=== PATIENT | female | born 1965 | race Caucasian/White ===

== ENCOUNTER 2016-07-27 03:53 | Inpatient (IN) | payer OTHER ==
--- NOTE | ~2016-07-27 | CN ---
Consultation Report [facility] [address] [place]. [address] NAME: JOLENE RAMACHANDRAN : 61 STATUS : ADM Pk PAT#: [id number] AGE: 50 ADM/REG DATE : 07/27/16 MR#: [id number] REPORT SERV DATE: 07/27/16 DICTATED BY: BRET BRAGA DATE: 07/27/16 REPORT STATUS : Draft TRANSCRIBED BY: MODL DATE: 07/27/16 INFECTIOUS DISEASE CONSULTATION DATE OF CONSULTATION: 07/27/2016 REASON FOR CONSULTATION: Febrile illness. HISTORY OF PRESENT ILLNESS: This is a very pleasant 50-year-old female with a past medical history notable for autoimmune hepatitis diagnosed about five years ago along with Sjogren syndrome. She has been followed at [facility] and has been on immunosuppressive therapy for some time, presently on Imuran and budesonide. Her Imuran and budesonide doses have recently decreased. The patient states that she has not felt as well for the past couple months, mainly being bothered by just fatigue. However, on the morning of 07/25/2016, she woke with pain in her legs and feet. She has pain in those locations with her underlying illness, but this was of a different quality. She went to work but felt worse and developed nausea and fevers, which went as high as 103 along with some headache. In addition, she has been having chest pain over her anterior chest with some associated shortness of breath. All these symptoms brought her to the emergency department last night where she did spike a fever, sometime after presentation up to 103. Workup was notable for normal white blood cell count. A low procalcitonin level and a mildly elevated troponin level. She underwent extensive radiologic evaluation as outlined below, which was negative. I discussed the case earlier this morning with Dr. Sanchez. The patient was evaluated by Dr. Arreola and he noted a loud or heart murmur, and echocardiogram was done today which was technically difficult, but showed gyon-fo-tkcevubi mitral regurgitation with an eccentric jet and estimated ejection fraction of 55%. An echocardiogram report from October of 2014 described mild mitral regurgitation and estimated ejection fraction of 65% to 70%. The patient had four sets of blood cultures done this morning. Antibiotics have not been started. The patient denies any recent infection issues such as skin or soft tissue infections like a boil or an abscess. She denies any dental infections or urinary tract infections. The patient does note that she found a tick crawling on her body a 10-14 days ago, but has not found any embedded ticks and really is not outdoors very much. In fact she says for the most part she goes to work, comes home, eats a little bit, and then is exhausted and goes to bed. PAST MEDICAL HISTORY: 1. Autoimmune hepatitis as mentioned in the past. She was also on Prograf for about four years but that was stopped two years ago. 2. Sjogren's syndrome with positive GAGE. 3. History of shingles. ALLERGIES: NO KNOWN DRUG ALLERGIES. OUTPATIENT MEDICATIONS: In addition to the Imuran and budesonide include just p.r.n. Ultram. SOCIAL HISTORY: Nonsmoker, nondrinker. She is and her is here in the room Consultation Report [place] [id number] [facility] [place]. [address] NAME: JOLENE RAMACHANDRAN : 61 STATUS : ADM Pk PAT#: [id number] AGE: 50 ADM/REG DATE : 07/27/16 MR#: [id number] REPORT SERV DATE: 07/27/16 DICTATED BY: BRET BRAGA DATE: 07/27/16 REPORT STATUS : Draft TRANSCRIBED BY: BRANDON DATE: 07/27/16 with her. She works for a [employer]. No recent travel history. No pets or animal contact. No known exposure to active tuberculosis. No particular hobbies. No unusual dietary habits. FAMILY HISTORY: Notable for mother with rheumatoid arthritis. REVIEW OF SYSTEMS: As outlined above. As mentioned, she has had a headache for the past couple of days. It was fairly bothersome yesterday, but not at present. No visual symptoms. No oral ulcers. Denies any cough, no diarrhea, no dysuria. Denies any bleeding or bruising. PHYSICAL EXAMINATION: VITAL SIGNS: The patient weighs 96 kilos. Presently is afebrile, maximum temperature 103.2 early this morning. Blood pressure 136/59, pulse 91, it was as high as 102, respiratory rate is 16. GENERAL: She is alert. She looks mildly ill, but in no acute distress at all. HEAD AND NECK: Extraocular movements intact. Conjunctivae without petechiae. The oral cavity is clear. Neck is supple. No adenopathy. LUNGS: Clear to auscultation. CARDIAC: Regular rate and rhythm. Normal S1, S2 with a 3/6 systolic murmur at the lower left sternal border and apex. No rub. ABDOMEN: Soft, nontender. Bowel sounds present. No masses. EXTREMITIES: No stigmata of endocarditis. No signs of active synovitis. NEUROLOGIC: Exam is grossly intact. LABORATORY STUDIES: White blood cell count 5.0, hemoglobin 13.9, platelets 102, last platelet count I have in [employer] was in September of 2015 at 200; automated differential, 80% neutrophils, 8% lymphocytes, 11% monocytes. Creatinine 0.81, procalcitonin 0.14, ALT 117, AST 98 (her transaminases have been improving over the past couple of months). Urinalysis negative. Sedimentation rate 18. A CTA of the chest, abdomen, and pelvis unremarkable. Repeat troponin 0.38. IMPRESSION: Febrile illness of uncertain etiology in a patient with underlying autoimmune hepatitis and Sjogren syndrome on immunosuppressive therapy. Certainly, with this a loud murmur and possibility of worsening mitral regurgitation, I have to consider the possibility of endocarditis. Other bacterial etiologies of this illness seem unlikely given the negative workup to date and particularly the negative imaging. She did find this tick on her 10-14 days ago, but overall I doubt this is a tick-borne infection. Her exposure history is minimal and she has not found an embedded tick. Certainly, though with the thrombocytopenia, must consider Ehrlichia, her transaminases are elevated but this is chronic. The overall picture is also complicated by the elevation in her troponin and her chest pain. Certainly, this could all be a viral syndrome also. PLAN: For now, we will just simply wait on the blood cultures. I think it is reasonable to hold antibiotics pending these results as she is not toxic and is hemodynamically stable. Consultation Report [address] [place]. [address] NAME: JOLENE RAMACHANDRAN : 61 STATUS : ADM Pk PAT#: [id number] AGE: 50 ADM/REG DATE : 07/27/16 MR#: [id number] REPORT SERV DATE: 07/27/16 DICTATED BY: BRET BRAGA DATE: 07/27/16 REPORT STATUS : Draft TRANSCRIBED BY: BRANDON DATE: 07/27/16 If the blood cultures returned positive, we will repeat two more sets and then begin vancomycin if the Gram stain shows gram-positive cocci. /MODL Bret Braga M.D. / [id number] CC: Devon Ramirez Llyod James
--- NOTE | ~2016-07-27 | HP ---
History And Physical [facility] [address] [place]. [address] NAME: JOLENE RAMACHANDRAN : 61 STATUS : ADM Pk PAT#: [id number] AGE: 50 ADM/REG DATE : 07/27/16 MR#: [id number] REPORT SERV DATE: 07/27/16 DICTATED BY: QUINN MARQUEZ DATE: 07/27/16 REPORT STATUS : Draft TRANSCRIBED BY: MODL DATE: 07/27/16 DATE OF ADMISSION: 07/27/2016 CHIEF COMPLAINT: A 50-year-old female with autoimmune hepatitis and Sjogren's, now presenting with chest pain and fevers. HISTORY OF PRESENTING ILLNESS: The patient's history was obtained through careful interview with the patient and , coupled with review of [facility] medical records. The patient states that around the evening of 07/25/2016 she began to develop new-onset chest discomfort and "just felt bad." She has had subjective fevers and chills and a measured temperature up to 100.3 at home. For about two days, she has suffered nausea, vomiting, and severe reflux symptoms and intermittent chest discomfort. But then on the night of 07/25/2016 and 07/26/2016, she stayed up all night long with chest discomfort. It was worsened by sitting down and lying down and was improved by sitting up straight or leaning forward. She describes it is in the area around her xiphoid, as she describes it. It has a heaviness or "on fire" quality. It has caused some aching discomfort in her left arm as well. It gets up to a 7/10 severity. Her chest discomfort is associated with her nausea as well as shortness of breath and feeling like she cannot take a deep breath with dyspnea on exertion. She has also had lightheadedness. She describes "my heart is going to beat out of my chest" with palpitations. No change of bowel or bladder habit. No abdominal pain. No back pain. No headaches. No arthritis pains. REVIEW OF SYSTEMS: Otherwise, a 14-point review of systems was obtained and was negative. PAST MEDICAL HISTORY: 1. Autoimmune hepatitis, diagnosed about five years ago, followed by [facility], under good control on Imuran and budesonide. 2. Sjogren's with positive GAGE. 3. Pneumonia. 4. Cellulitis. 5. Shingles. 6. Negative Holter monitor in 2016. 7. Negative cardiac stress test in September 2015. PAST SURGICAL HISTORY: Liver biopsy x3. History And Physical [address] [address] NAME: JOLENE RAMACHANDRAN : 61 STATUS : ADM Pk PAT#: [id number] AGE: 50 ADM/REG DATE : 07/27/16 MR#: [id number] REPORT SERV DATE: 07/27/16 DICTATED BY: QUINN MARQUEZ DATE: 07/27/16 REPORT STATUS : Draft TRANSCRIBED BY: BRANDON DATE: 07/27/16 ALLERGIES: NO KNOWN DRUG ALLERGIES. SOCIAL HISTORY: No tobacco abuse. No alcohol abuse. Is . Has no children. Lives in [place], [place]. Works for the [employer]. FAMILY HISTORY: Mother and grandmother with pancreatic cancer. Father healthy. Mother with rheumatoid arthritis. CURRENT MEDICATIONS: Include Imuran 150 mg p.o. daily, budesonide 9 mg every morning, tramadol. PHYSICAL EXAMINATION: VITAL SIGNS: Temperature 103.0, pulse 102, blood pressure 172/67, respiratory rate 22, O2 saturation 97% on room air. GENERAL: A pleasant, cooperative female. She does not appear particularly ill or in any evidence of distress. HEENT: Pupils equal, round, and reactive to light. No conjunctival pallor. No scleral icterus. Nares are patent. Oropharynx is clear of obstruction. Moist mucous membranes. No facial rash. NECK: Trachea midline. No thyromegaly. LYMPH: No cervical lymphadenopathy. No supraclavicular lymphadenopathy. RESPIRATORY: Clear to auscultation at the bases. No wheezes, no rales, no rhonchi. Normal respiratory effort. CARDIOVASCULAR: Tachycardic. Regular rhythm. The patient has no murmurs or gallops. I do think that I appreciate a rub on examination throughout cardiac evaluation and exam. The patient has no current extremity edema. ABDOMEN: Soft, nontender, nondistended. Normal bowel tones auscultated throughout. No hepatosplenomegaly is appreciated. DERMATOLOGICAL: Warm, dry extremities. No pallor. No cyanosis. PSYCHIATRIC: Normal affect. Good mood. Alert and oriented x3. LABORATORY DATA: Troponin 0.32. Procalcitonin 0.14. Lipase 441. INR 1.1. AST 98, ALT 117, alkaline phosphatase 101. White blood cell count 5.0, hemoglobin 14, hematocrit 40, platelets 102. Sodium 135, potassium 3.5, chloride 103, bicarb 23, BUN 7, creatinine 0.81, glucose 165. Urinalysis negative for infection. STUDIES: 1. EKG, by my own evaluation, shows sinus tachycardia. There are no ST changes of significance. 2. CT angiogram of the chest shows no pulmonary embolism, no intrathoracic process. 3. CT of the abdomen and pelvis shows no acute intraabdominal process. ASSESSMENT AND PLAN: 1. Chest pain. Negative EKG. Primary differential diagnosis is pericarditis versus coronary artery disease versus a noncardiac disease. Negative CT angiogram of the chest is noted. History And Physical [address] [address] NAME: JOLENE RAMACHANDRAN : 61 STATUS : ADM Pk PAT#: [id number] AGE: 50 ADM/REG DATE : 07/27/16 MR#: [id number] REPORT SERV DATE: 07/27/16 DICTATED BY: QUINN MARQUEZ DATE: 07/27/16 REPORT STATUS : Draft TRANSCRIBED BY: BRANDON DATE: 07/27/16 2. Presumptive pericarditis. I believe there is a pericardial rub on examination and the patient's presentation seems to be consistent with this, and also with a history of autoimmune condition such as Sjogren's, I would like to check an GAGE titer, ESR, complement level. For now, we will try aspirin 325 mg p.o. daily (considering an increased dose as well) but also try colchicine 0.6 mg p.o. b.i.d. empirically. Check an echocardiogram. There seems to be no evidence of pericardial effusion on CT scan though. 3. Elevated troponin. Possible [id number]-kxqovktvk myocardial infarction versus an elevated troponin from pericarditis? We will start empiric IV heparin drip until cleared by Cardiology or an empiric negative coronary artery disease evaluation has been completed. 4. Fever of 103.0. Check blood cultures x2. Noted the patient has a negative CT scan of the abdomen and pelvis, negative CT scan of the chest, and negative urinalysis. The patient is immunosuppressed on Imuran and Entocort and has a normal white blood cell count. I will hold antibiotics for now, check an echocardiogram, screen for rheumatological activity and disease with complement level, ESR, and GAEG titer, but we will also ask for an Infectious Disease consult. I have discussed the case with Dr. Zoran Braga. 5. Autoimmune hepatitis. Seems under good control. 6. Sjogren's. KPL/MODL Quinn Marquez M.D. / [id number] CC: Devon James LLOYD JAMES
--- NOTE | ~2016-07-27 | CN ---
Consultation Report [facility] [address] [place]. [address] NAME: JOLENE SYKES : 61 STATUS : ADM Pk PAT#: [id number] AGE: 50 ADM/REG DATE : 07/27/16 MR#: [id number] REPORT SERV DATE: 07/27/16 DICTATED BY: CHOCO COLLINS DATE: 07/27/16 REPORT STATUS : Draft TRANSCRIBED BY: MODL DATE: 07/27/16 CARDIOVASCULAR CONSULTATION DATE OF CONSULTATION: 07/27/2016 INDICATION: Chest pain, elevated troponin, heart murmur. HISTORY OF PRESENT ILLNESS: Ms Sykes is a 50-year-old woman with a history of autoimmune hepatitis and Sjogren syndrome. She has known about a heart murmur for several years and evidently had an echocardiogram at [facility]. The details of this are unclear. She has had some off and on chest pain, and by her report, underwent a stress test about a year ago. She has never seen a kaiawhina. Over the last several weeks, she has had worsening symptoms of exertional chest pain and shortness of breath. She has been tapering down on her immunosuppressive medications, following her liver enzymes with her caramel candy maker helper at [facility]. She had worsening chest pain, left arm pain, precordial chest pain, and dyspnea last night. She presented to the emergency room. She was found to have a fever of 103, troponin mildly elevated at 0.32, EKG showed no evidence of ischemia or pericarditis. Chest CTA showed no evidence of pulmonary embolus. She did have a murmur on exam, which was initially thought to be a pericardial friction rub, but I think is more consistent with a mitral regurgitation murmur. PAST MEDICAL HISTORY: 1. Sjogren syndrome. 2. Autoimmune hepatitis. ALLERGIES: NO KNOWN DRUG ALLERGIES. MEDICATIONS: Include Imuran, Entocort, and Ultram. SOCIAL HISTORY: She does not smoke or drink alcohol. FAMILY HISTORY: There is no family history of early coronary artery disease. REVIEW OF SYSTEMS: A complete review of systems was obtained, which is negative in detail except as mentioned above in the HPI. PHYSICAL EXAMINATION: VITAL SIGNS: BLOOD PRESSURE: Initially 170/60, subsequently lower. PULSE: Heart rate of 90s. RESPIRATIONS: 14. TEMPERATURE: 103. GENERAL: Comfortable in no acute distress. Consultation Report [facility] [address] [place]. [address] NAME: JOLENE SYKES : 61 STATUS : ADM Pk PAT#: [id number] AGE: 50 ADM/REG DATE : 07/27/16 MR#: [id number] REPORT SERV DATE: 07/27/16 DICTATED BY: CHOCO COLLINS DATE: 07/27/16 REPORT STATUS : Draft TRANSCRIBED BY: BRANDON DATE: 07/27/16 HEENT: Anicteric. No xanthelasma. Lips without cyanosis. NECK: No JVD. Carotids 2+ and symmetric. No carotid bruits. LUNGS: CTA bilaterally. No wheezes or rhonchi. No accessory muscle use. COR: Regular rate and rhythm. Normal S1, S2. There is a grade 3/6 holosystolic murmur, best heard at the left lower sternal border, radiating to the left chest. ABD: Soft, nontender, nondistended. Normal bowel sounds. No abdominal bruits. EXT: No clubbing, cyanosis, or edema 2+ and symmetric distal pulses. SKIN: Warm. Dry. No venous stasis changes. MS: No kyphosis. NEURO/PSYCH: Oriented x3. No anxiety or depression. LABORATORY STUDIES: White count of 5.0, hematocrit of 39.8, platelets of 102. Potassium of 3.5, creatinine of 0.81. Troponin of 0.32, INR of 1.0. AST of 98, ALT of 117, lipase of 441, alkaline phosphatase of 101. IMPRESSION: This is a 50-year-old woman with a history of autoimmune disease, presenting with dyspnea, chest pain, and a borderline troponin. Her exam is most notable for a loud mitral regurgitation murmur. I have recommended to check an echocardiogram. We will plan to check serial troponin enzymes, although I doubt this is a non-ST elevation VT. She may have some autoimmune involvement with her mitral valve. I am not sure about the possibility of endocarditis. This is a fairly confusing initial clinical presentation and a number of investigations will need to be undertaken. KAMAR/BRANDON Choco Collins M.D. / [id number] CC: Devon James LLOYD JAMES
--- NOTE | ~2016-07-27 | CN ---
Consultation Report [facility] [address] [place]. [address] NAME: JOLENE RAMACHANDRAN : 61 STATUS : ADM Pk PAT#: [id number] AGE: 50 ADM/REG DATE : 07/27/16 MR#: [id number] REPORT SERV DATE: 07/27/16 DICTATED BY: BRET BRAGA DATE: 07/27/16 REPORT STATUS : Draft TRANSCRIBED BY: MODL DATE: 07/27/16 DATE OF CONSULTATION: 07/27/2016 REASON FOR CONSULTATION: Febrile illness. HISTORY OF PRESENT ILLNESS: This is a 50-year-old female with a past medical history notable for autoimmune hepatitis, which was diagnosed about five years ago along with Sjogren's syndrome. She has been followed at [facility] and is on immunosuppressive therapy with Imuran and budesonide. Her doses of the budesonide had been decreased recently. DICTATION ENDS HERE JOVANNA/BRANDON Bret Braga M.D. / [id number] CC: Devon Ramirez
--- NOTE | ~2016-07-27 | TEE ---
Transesophageal Echocardiogram [facility] [address] [place]. [address] NAME: JOLENE RAMACHANDRAN : 61 STATUS : DIS IN PAT#: [id number] AGE: 50 ADM/REG DATE : 07/27/16 MR#: [id number] REPORT SERV DATE: 07/31/16 DICTATED BY: CHOCO COLLINS DATE: 07/28/16 REPORT STATUS : Draft TRANSCRIBED BY: BRANDON DATE: 07/28/16 INDICATION: Endocarditis? PROCEDURE DESCRIPTION: After informed consent, the patient was sedated with propofol by the Anesthesia Department. The transesophageal probe was placed on the first attempt. After removal of the transesophageal probe, there were no immediate complications. TRANSESOPHAGEAL ECHOCARDIOGRAM: 2D: 1. The aortic valve is tricuspid and opens adequately. 2. There is no evidence of left atrial appendage thrombus. 3. There is no evidence of ascending thoracic aortic aneurysm. 4. Left ventricular size and systolic function appears normal. 5. The mitral valve leaflets are mildly thickened. There is no significant mitral valve prolapse. 6. The left atrium is normal in size. 7. Right-sided chambers are normal in size. 8. The tricuspid valve is structurally normal. 9. There is no evidence of pericardial effusion. DOPPLER: Pulse wave Doppler in the left atrial appendage is greater than 40 cm/second. COLOR FLOW: 1. There is mild aortic regurgitation. 2. There is rxsy-tw-defbrhuy mitral regurgitation. 3. There is mild tricuspid regurgitation. IMPRESSION: 1. No evidence of endocarditis. 2. There is ozhl-sd-khoeidtn mitral regurgitation noted. 3. No significant mitral valve prolapse. KAMAR/BRANDON Choco Collins M.D. / [id number] CC: Devon Ramirez Lloyd James
--- NOTE | ~2016-07-27 | DS ---
Discharge Summary [facility] [address] [place]. [address] NAME: JOLENE RAMACHANDRAN : 61 STATUS : DIS Pk PAT#: [id number] AGE: 50 ADM/REG DATE : 07/27/16 MR#: [id number] REPORT SERV DATE: 07/30/16 DICTATED BY: CHAGO POPE DATE: 07/29/16 REPORT STATUS : Draft TRANSCRIBED BY: BRANDON DATE: 07/29/16 ADMISSION DATE: 07/27/2016 DISCHARGE DATE: 07/29/2016 PROCEDURES DONE: 1. 07/27/2016, CT abdomen and pelvis: Unremarkable CT scan of abdomen and pelvis. 2. 07/27/2016, CTA of chest: Normal CTA chest with no PE. 3. 07/27/2016, CTA abdomen and pelvis: No acute abnormality identified. 4. 07/28/2016, 2D echo: Technically difficult study due to limited acoustic windows. Normal LV size and systolic function. EF 55%. No regional wall motion abnormalities identified. Normal RV size and systolic function. Basal septal hypertrophy with mild LVOT obstruction at rest. Aortic valve sclerosis without stenosis. Bcln-yh-gpairgmx mitral valve regurg with eccentric jet. No previous echo available for comparison. 5. 07/28/2016, CHATA: Negative endocarditis. Wrmw-ki-javhkpzj mitral regurg. Normal LV ejection fraction. CONSULTS: Dr. Arreola for Cardio and Dr. Braga for Infectious Disease. REASON FOR ADMISSION: Chest pain with fevers. CHIEF COMPLAINT: Fevers and chest pain. HISTORY OF HOSPITAL STAY: A 50-year-old white female with past medical history of autoimmune hepatitis, Sjogren syndrome, presenting with chest pain and fevers. Cardiology was consulted regarding the patient's chest pain. It was noted there was a slight elevation in troponin levels. Cardiology was consulted for elevated troponins, questionable non-ST elevation HI. More importantly, the patient has mitral regurgitation on examination. CHATA was ordered to rule out endocarditis. CHATA was done on 07/28/2016, which was negative for endocarditis. More importantly, the patient's elevated troponins did not show any non-ST elevation HI. Cardiology felt that the patient's febrile illness could be questionable viral in etiology. Nonetheless, Infectious Disease was consulted due to the patient's fevers. Again, difficult to ascertain if the patient's elevated fever is due to autoimmune hepatitis and Sjogren syndrome on immunosuppression. Infectious Disease felt to hold off antibiotics until cultures were done, which were negative. Since the patient has been feeling better after being admitted, the patient does not show any further fevers and not to mention that the patient's LFTs have been trending down. Question whether the patient will be discharged if okay with Infectious Disease. Currently, the patient would like to go home. The patient does not show any symptoms of chest pain or fevers. DISPOSITION: The patient is feeling fine, no complaints. ACTIVITY: As tolerated. DIET: Regular. INSTRUCTIONS UPON DISCHARGE: The patient to follow up with Hepatology at [place]. The Discharge Summary [address] [address] NAME: JOLENE RAMACHANDRAN : 61 STATUS : DIS Pk PAT#: [id number] AGE: 50 ADM/REG DATE : 07/27/16 MR#: [id number] REPORT SERV DATE: 07/30/16 DICTATED BY: CHAGO POPE DATE: 07/29/16 REPORT STATUS : Draft TRANSCRIBED BY: BRANDON DATE: 07/29/16 patient states that she will make contact and set up a future appointment. MEDICATIONS UPON DISCHARGE: 1. Imuran 150 mg p.o. q.a.m. 2. Budesonide 9 mg p.o. q.a.m. 3. Ultram 50 mg p.o. daily p.r.n. DIAGNOSES UPON DISCHARGE: 1. Chest pain and fevers secondary to questionable viral in etiology. 2. Sjogren syndrome. 3. Autoimmune hepatitis. DICTATED BY: MD JANIYA Mclean/BRANDON Chago Pope MD / [id number] CC: MD PERNELL Mclean LLOYD JAMES
[2016-07-27 03:23] LABS: BASOPHILS 0.4 %; BASOPHILS ABSOLUTE 0.02 10/3/uL (0.0-0.16); EOSINOPHILS 0.2 %; EOSINOPHILS ABSOLUTE 0.01 10/3/uL (0.0-0.53); ER CBC TAT 0 Hrs 05 Mins; HEMATOCRIT 39.8 % (36.0-48.0); HEMOGLOBIN 13.9 g/dL (12.0-16.0); IMMATURE GRANULOCYTES 0.2 %; IMMATURE GRANULOCYTES ABSOLUTE 0.01 10/3/uL (0.0-0.11); LYMPHOCYTES 8.3 %; LYMPHOCYTES ABSOLUTE 0.42 10/3/uL (0.67-4.30); MEAN CORPUS HGB CONC 34.9 g/dL (32.0-36.0); MEAN CORPUSCULAR HEMOGLOB 31.2 pg (26.0-34.0); MEAN CORPUSCULAR VOLUME 89.4 fL (80-100); MEAN PLATELET VOLUME 11.2 fL (9.2-13.0); MONOCYTES 11.3 %; MONOCYTES ABSOLUTE 0.57 10/3/uL (0.21-1.20); NEUTROPHILS 79.6 %; RBC DISTRIBUTION WIDTH 14.5 % (12.0-16.0); RED CELL COUNT 4.45 10/6/uL (4.0-5.6)
[2016-07-27 03:24] LABS: PLATELET COUNT 102 10/3/uL (150-400)
[2016-07-27 03:26] LABS: MANUAL DIFF NO %
[2016-07-27 03:28] LABS: INTERNATIONAL NORMAL RATI 1.1 UNITS (-); PARTIAL THROMBO TIME 29.7 SEC (22.5-37.2); PROTIME (NOT ORD) 14.3 SEC (12.0-14.5)
[2016-07-27 03:41] LABS: ALBUMIN 3.7 G/DL (3.5-5.0); ALKALINE PHOSPHATASE 101 U/L (45-117); BUN (BLOOD UREA NITROGEN) 7 MG/DL (6-23); CALCIUM, SERUM 8.5 MG/DL (8.5-10.4); CHLORIDE, SERUM 103 MMOL/L (96-112); CO2 (CARBON DIOXIDE) 23 MMOL/L (24-34); CREATININE 0.81 MG/DL (0.55-1.02); DIRECT BILIRUBIN 0.2 MG/DL (0.0-0.4); GFR AFRICAN AMERICAN 97 ML/MIN (>=60); GFR NON AFRICAN AMERICAN 84 ML/MIN (>=60); INDIRECT BILIRUBIN(NOT ORDER) 0.5 MG/DL (0.1-0.9); POTASSIUM, SERUM 3.5 MMOL/L (3.5-5.3); SGOT(AST) 98 U/L (5-40); SGPT(ALT) 117 U/L (5-65); SODIUM, SERUM 135 MMOL/L (135-148); TOTAL BILIRUBIN 0.7 MG/DL (0-1.2); TOTAL PROTEIN 7.6 G/DL (6.0-8.5)
[2016-07-27 03:44] LABS: GLUCOSE, SERUM 165 MG/DL (60-99)
[2016-07-27 03:45] LABS: CHEST PAIN PROFILE TAT 0 Hrs 27 Mins; TROPONIN I 0.32 NG/ML (<0.05)
[2016-07-27 04:31] LABS: PROCALCITONIN 0.14 ng/mL (<0.5)
[2016-07-27] MEDS ORDERED: IMU PO (04:52)
[2016-07-27] MEDS ORDERED: ENTOCORT3 PO (04:52)
[2016-07-27] MEDS ORDERED: ULTRAM50 PO (04:53)
[2016-07-27 04:55] LABS: ASCORBIC ACID (UR NOT ORDER) NEG (NEG); BILIRUBIN, URINE NEGATIVE (NEG); ER URINALYSIS TAT 0 Hrs 02 Mins; KETONE, URINE NEGATIVE (NEG); LEUKOCYTE ESTERASE(NOT OR NEG (NEG); NITRITE (URINE) NEG (NEG); WBC (NOT ORDERED) (RFLEX) 1 (0-5)
[2016-07-27 09:02] LABS: C-REACTIVE PROTEIN 10.7 MG/L (<8.0); COMPLEMENT C4 18.6 MG/DL (16-47); TROPONIN I 0.51 NG/ML (<0.05); ULTRASENSITIVE TSH 0.825 MCIU/ML (0.358-3.740)
[2016-07-28 06:08] LABS: BASOPHILS 0.5 %; BASOPHILS ABSOLUTE 0.03 10/3/uL (0.0-0.16); EOSINOPHILS 0 %; HEMOGLOBIN 12.1 g/dL (12.0-16.0); IMMATURE GRANULOCYTES 0.3 %; IMMATURE GRANULOCYTES ABSOLUTE 0.02 10/3/uL (0.0-0.11); LYMPHOCYTES 18.9 %; LYMPHOCYTES ABSOLUTE 1.23 10/3/uL (0.67-4.30); MEAN CORPUS HGB CONC 35.1 g/dL (32.0-36.0); MEAN CORPUSCULAR HEMOGLOB 31.3 pg (26.0-34.0); MEAN CORPUSCULAR VOLUME 89.4 fL (80-100); MEAN PLATELET VOLUME 10.7 fL (9.2-13.0); MONOCYTES 8.9 %; MONOCYTES ABSOLUTE 0.58 10/3/uL (0.21-1.20); NEUTROPHILS 71.4 %; NEUTROPHILS ABSOLUTE 4.64 10/3/uL (2.02-8.40); PLATELET COUNT 85 10/3/uL (150-400); RBC DISTRIBUTION WIDTH 14.7 % (12.0-16.0); RED CELL COUNT 3.86 10/6/uL (4.0-5.6); WHITE BLOOD CELLS 6.5 10/3/uL (4.5-10.5)
[2016-07-28 06:09] LABS: HEMATOCRIT 34.5 % (36.0-48.0); MANUAL DIFF NO %
[2016-07-28 06:28] LABS: A/G RATIO 0.9 (0.7-1.9); ALBUMIN 3.1 G/DL (3.5-5.0); BUN (BLOOD UREA NITROGEN) 8 MG/DL (6-23); CALCIUM, SERUM 7.9 MG/DL (8.5-10.4); CHLORIDE, SERUM 103 MMOL/L (96-112); CO2 (CARBON DIOXIDE) 21 MMOL/L (24-34); CREATININE 0.65 MG/DL (0.55-1.02); GFR AFRICAN AMERICAN 118 ML/MIN (>=60); GFR NON AFRICAN AMERICAN 102 ML/MIN (>=60); GLOBULIN 3.3 G/DL (2.5-4.1); GLUCOSE, SERUM 134 MG/DL (60-99); POTASSIUM, SERUM 3.5 MMOL/L (3.5-5.3); SGOT(AST) 76 U/L (5-40); SGPT(ALT) 87 U/L (5-65); SODIUM, SERUM 133 MMOL/L (135-148); TOTAL PROTEIN 6.4 G/DL (6.0-8.5)
[2016-07-28 06:30] LABS: ALKALINE PHOSPHATASE 74 U/L (45-117); TOTAL BILIRUBIN 2.1 MG/DL (0-1.2)
[2016-07-28 08:54] LABS: INTERNATIONAL NORMAL RATI 1.2 UNITS (-); PROTIME (NOT ORD) 14.9 SEC (12.0-14.5)
[2016-07-28 13:00] LABS: ANA PATTERN SPECKLED
[2016-07-29 03:41] LABS: BASOPHILS 0.4 %; BASOPHILS ABSOLUTE 0.02 10/3/uL (0.0-0.16); EOSINOPHILS 0.4 %; EOSINOPHILS ABSOLUTE 0.02 10/3/uL (0.0-0.53); HEMATOCRIT 33.3 % (36.0-48.0); HEMOGLOBIN 11.5 g/dL (12.0-16.0); IMMATURE GRANULOCYTES 0.2 %; IMMATURE GRANULOCYTES ABSOLUTE 0.01 10/3/uL (0.0-0.11); LYMPHOCYTES 24.5 %; LYMPHOCYTES ABSOLUTE 1.31 10/3/uL (0.67-4.30); MEAN CORPUS HGB CONC 34.5 g/dL (32.0-36.0); MEAN CORPUSCULAR HEMOGLOB 30.9 pg (26.0-34.0); MEAN CORPUSCULAR VOLUME 89.5 fL (80-100); MEAN PLATELET VOLUME 11.3 fL (9.2-13.0); MONOCYTES 7.9 %; MONOCYTES ABSOLUTE 0.42 10/3/uL (0.21-1.20); NEUTROPHILS 66.6 %; NEUTROPHILS ABSOLUTE 3.56 10/3/uL (2.02-8.40); PLATELET COUNT 89 10/3/uL (150-400); RBC DISTRIBUTION WIDTH 14.6 % (12.0-16.0); RED CELL COUNT 3.72 10/6/uL (4.0-5.6); WHITE BLOOD CELLS 5.3 10/3/uL (4.5-10.5)
[2016-07-29 03:44] LABS: MANUAL DIFF NO %
[2016-07-29 03:57] LABS: A/G RATIO 0.8 (0.7-1.9); ALKALINE PHOSPHATASE 70 U/L (45-117); BUN (BLOOD UREA NITROGEN) 10 MG/DL (6-23); CHLORIDE, SERUM 104 MMOL/L (96-112); CO2 (CARBON DIOXIDE) 24 MMOL/L (24-34); CREATININE 0.53 MG/DL (0.55-1.02); GFR AFRICAN AMERICAN 127 ML/MIN (>=60); GFR NON AFRICAN AMERICAN 109 ML/MIN (>=60); GLOBULIN 3.8 G/DL (2.5-4.1); GLUCOSE, SERUM 110 MG/DL (60-99); POTASSIUM, SERUM 3.8 MMOL/L (3.5-5.3); SGOT(AST) 46 U/L (5-40); SGPT(ALT) 75 U/L (5-65); SODIUM, SERUM 132 MMOL/L (135-148); TOTAL PROTEIN 6.8 G/DL (6.0-8.5)
[2016-07-29 03:58] LABS: TOTAL BILIRUBIN 0.8 MG/DL (0-1.2)
== END 2016-07-29 18:52 | disposition home or self-care (01) | DRG 866 ==
LOC: ER 03:53 → 7NO 05:39
PROVIDERS: Emergency Medicine; Hospitalist; Internal Medicine Cardiovascular Disease
PROC: B24BZZ4 Ultrasonography of Heart with Aorta, Transesophageal (ICD-10-PCS; principal; 2016-07-28)
DX: B34.9 Viral infection, unspecified (principal); D69.6 Thrombocytopenia, unspecified; K75.4 Autoimmune hepatitis; M35.00 Sjogren syndrome, unspecified; I34.0 Nonrheumatic mitral (valve) insufficiency; Z79.899 Other long term (current) drug therapy; R07.89 Other chest pain; G47.00 Insomnia, unspecified
CPT/HCPCS: 71275; 74174; 74176; 80048; 80053; 80076; 81001; 83605; 83690; 83735; 83880; 84145; 84443; 84484; 85025; 85610; 85652; 85730; 86039; 86140; 86160; 87040; 93005; 93306; 93312; 93320; 93325; 96374; 96375; 99285; A9270-GY; J1170; J2405; J7500; Q9967